=== PATIENT | male | born 1975 | race Caucasian/White ===

== ENCOUNTER 2019-04-25 02:48 | Emergency (ER) | payer BC ==
[~2019-04-25] VITALS: Ht 170.2 cm; Wt 79.4 kg
[2019-04-25 03:05] VITALS: Ht 170.2 cm; Wt 79.4 kg
[2019-04-25 05:39] VITALS: BP 114/68
== END 2019-04-25 05:39 | disposition home or self-care (01) ==
LOC: ED 02:48
DX: S61.011A Laceration without foreign body of right thumb without damage to nail, initial encounter (principal); F10.129 Alcohol abuse with intoxication, unspecified; Z98.890 Other specified postprocedural states; W26.8XXA Contact with other sharp object(s), not elsewhere classified, initial encounter; Y93.89 Activity, other specified; Y92.89 Other specified places as the place of occurrence of the external cause; Y99.8 Other external cause status
CPT/HCPCS: J2001